=== PATIENT | female | born 1975 | race Caucasian/White ===

== ENCOUNTER → 2018-04-16 16:56 | Outpatient (CLI) | payer OTHER, SELFPAY ==
[2018-04-20 08:41] LABS: HPV Reflexed? NOT INDICATED
== END ==
PROVIDERS: Visit Provider Obstetrics & Gynecology
DX: Z12.4 Encounter for screening for malignant neoplasm of cervix (principal)
CPT/HCPCS: 88175; G0145

== ENCOUNTER → 2019-04-25 10:09 | Outpatient (CLI) | payer OTHER, SELFPAY ==
[2019-04-30 09:35] LABS: HPV APTIMA, High Risk Negative (Negative)
== END ==
PROVIDERS: Visit Provider Obstetrics & Gynecology
DX: Z12.4 Encounter for screening for malignant neoplasm of cervix (principal)
CPT/HCPCS: 87624; 88175; G0145

== ENCOUNTER 2021-08-17 15:46 | Outpatient (CLI) | payer OTHER, SELFPAY ==
[2021-08-17 17:36] LABS: Free T3 2.5 pg/mL (2.18-3.98); T4 Free Direct 0.93 ng/dL (0.76-1.46); Thyroid Stim Hormone (TSH) 3.19 uIU/mL (0.358-3.74)
[2021-08-17 17:57] LABS: Vitamin D,25 Hydroxy 40.9 ng/mL
[2021-08-23 13:22] LABS: HPV APTIMA, High Risk Negative (Negative)
== END 2021-08-17 23:59 | disposition short-term general hospital (02) ==
LOC: WOBLAB 15:47
PROVIDERS: Visit Provider Obstetrics & Gynecology
DX: Z12.4 Encounter for screening for malignant neoplasm of cervix (principal); F32.0 Major depressive disorder, single episode, mild; E03.9 Hypothyroidism, unspecified
CPT/HCPCS: 36415; 82306; 84439; 84443; 84480; 84481; 87624; 88175; G0145